=== PATIENT | male | born 1945 | race Caucasian/White ===

== ENCOUNTER 2018-09-29 12:46 | Observation (INO) ==
[2018-09-29] MEDS ORDERED: ASPIRIN CHEW 324 MG PO STA (14:00)
--- NOTE | 2018-09-29 14:08 | XRay Report ---
XR chest 2V routine CLINICAL HISTORY: cp dyspnea COMPARISON STUDY: No previous studies for comparison. FINDINGS: The bones soft tissues and hemidiaphragms are normal. The cardiomediastinal silhouette is n ormal. The lungs are clear. The pulmonary vasculature is normal. IMPRESSION: Negative chest. The above report was generated using voice recognition software. It may contain grammatical, syntax or spelling errors. Electronically signed by: Karel Atkins M.D. 09/29/2018 2:07 PM
[2018-09-29 14:21] LABS: Basophils # (auto) 0.01 K/uL (0-0.2); Basophils % (auto) 0.1 %; Eosinophils # (auto) 0.15 K/uL (0-0.5); Eosinophils % (auto) 2.1 %; Hematocrit (blood only) 42.5 % (42-52); Hemoglobin 15.1 g/dL (14.0-18.0); Immature Granulocytes # (auto) 0.03 K/uL (0.00-0.02); Immature Granulocytes % (auto) 0.4 %; Lymphocytes # (auto) 2.17 K/uL (1.2-3.4); Mean Corpuscular Hgb Conc 35.5 g/dL (32-36); Mean Corpuscular Volume 88.5 fL (80-100); Mean Platelet Volume 10.1 fL (7.4-10.4); Monocytes # (auto) 0.54 K/uL (0.11-0.59); Monocytes % (auto) 7.7 %; Neutrophils % (auto) 58.7 %; Platelet Count 163 K/uL (130-400); RDW Coefficient of Variation 12.5 % (11.5-14.5); RDW Standard Deviation 39.9 fL (36.4-46.3)
[2018-09-29 14:35] LABS: Partial Thromboplastin Ratio 0.9; Partial Thromboplastin Time 24.4 Seconds (21.0-31.0); Prothrombin Time 10.3 Seconds (9.0-12.0)
[2018-09-29 14:37] LABS: Alanine Aminotransferase 39 U/L (12-78); Albumin Level 4.2 gm/dl (3.4-5.0); Aspartate Aminotransferase 20 U/L (15-37); BUN Creatinine Ratio 16.1 (10-20); Blood Urea Nitrogen 14 mg/dl (7-18); Carbon Dioxide 26 mmol/L (21-32); Chloride 106 mmol/L (98-107); Creatinine Clr Calc Pharmacy 84.9 ml/min; Est GFR (African American) 99.7; Glucose 129 mg/dl (70-99); Potassium 3.8 mmol/L (3.5-5.1); Sodium 140 mmol/L (136-145)
[2018-09-29 14:42] LABS: Albumin Globulin Ratio 1.4 (0.9-2); Alkaline Phosphatase 66 U/L (45-117); Bilirubin,Total 1.4 mg/dl (0.2-1); Globulin 2.9 gm/dl (2.5-4.0); Total Protein 7.1 gm/dl (6.4-8.2); Troponin I < 0.015 ng/ml (0-0.045)
--- NOTE | 2018-09-29 16:05 | History & Physical Report ---
Date of Service September 29, 2018 Assessment & Plan (1) Chest pain: Observation with telemetry. Serial EKGs and troponins. Obtain cardiac echo. Cardiology consultation. Continue aspirin therapy Present on Admission?: Yes (2) Hypertension: Treated with losartan Present on Admission?: Yes (3) Type 2 diabetes mellitus: ADA diet. Metformin is on hold. Sliding scale insulin coverage Present on Admission?: Yes (4) DVT prophylaxis: Lovenox subcu History of Present Illness Chief Complaint: Chest discomfort while cleaning a trailer Primary Care Provider: Beatriz Gonzalez 73-year-old male with a history of hypertension and type 2 diabetes. No previous cardiac history. 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 No associated shortness of breath, radiation, diaphoresis, palpitations. Initial troponin is normal. EKG reveals no acute changes. Chest x-ray negative. He is placed on observation status for further evaluation. He has an elevated heart score as expected. Metformin will be placed on hold in the event that cardiac catheterization becomes necessary. Continue aspirin therapy. Allergies Allergy/AdvReac Type Severity Reaction Status Date / Time oxytetracycline AdvReac Rash Unverified 09/29/18 14:53 [From Terramycin] Tetracyclines AdvReac Rash Unverified 09/29/18 14:53 Home Medications Home Medications Medication Instructions Recorded Confirmed Type atorvastatin 20 mg PO DAILY 09/29/18 09/29/18 History gabapentin 100 mg PO TID 09/29/18 09/29/18 History losartan 25 mg PO DAILY 09/29/18 09/29/18 History metformin 750 mg PO DAILY 09/29/18 09/29/18 History Past Med/Surg History Medical History Diabetes mellitus Hyperlipidemia Hypertension Family History Other Family history non-contributory Social History Preferred Language: [place] Feels Safe at Home: Yes Smoking Status: Never smoker Review of Systems Review of Systems: Constitutional-no fever or chills ENT-no blurred vision, no double vision, no epistaxis, no sore throat Respiratory-no cough, no wheezing, no shortness of breath Cardiac-no palpitations, no syncope. Chest discomfort as described above GI-no nausea, vomiting, diarrhea, melena, hematochezia -no urinary retention, no urinary incontinence, no dysuria, no hematuria Musculoskeletal-no joint pain, no muscle tenderness Skin-no bruising, no rashes, no pruritus Neuro-no isolated weakness, no paresthesia, no weakness Psych-no depression, no anxiety Physical Exam Physical Exam: General-alert and oriented x3, no fevers, no chills HEENT-head atraumatic and normocephalic, TMs intact bilaterally, pupils equal and reactive to light, extraocular muscles intact Neck-no lymphadenopathy or thyromegaly, trachea midline Chest-clear to auscultation percussion. No rales wheezing or rhonchi Cardiac-regular rate and rhythm, normal S1 and S2, no murmurs Abdomen-normal bowel sounds, nontender, no hepatosplenomegaly Extremities-no cyanosis, clubbing, or edema Neuro-cranial nerves II through XII intact, motor and sensory function within normal limits, strength symmetrical 5/5, no focal deficits Psych-normal affect, normal mood Results & Data Vital Signs (Past 12 Hours) Vital Signs Temp Pulse Resp BP Pulse Ox 09/29/18 15:30 63 18 115/75 95 09/29/18 15:11 64 15 145/74 H 97 09/29/18 15:00 97 09/29/18 14:30 65 15 97 09/29/18 14:27 70 18 144/85 H 98 09/29/18 14:00 62 09/29/18 13:42 62 20 98 09/29/18 13:30 61 15 131/76 98 09/29/18 13:10 96 09/29/18 13:02 62 20 96 09/29/18 13:00 72 17 146/85 H 97 09/29/18 12:48 36.7 C 80 16 141/86 H 99 Laboratory Results 09/29/18 13:06 09/29/18 13:06 PG Care Time/CCT Total # of Minutes Spent Total Time Spent with Patient: Total time spent is greater than 50% in coordination of care (as documented) at patient's floor/unit and/or counseling patient: (1) Chest pain Chest pain type: unspecified Qualified Code(s): R07.9 - Chest pain, unspecified
--- NOTE | 2018-09-29 17:50 | Emergency Department Note ---
Entered by Juan C Gunn acting as a scribe for History of Present Illness General Chief complaint: Cardiac Assessment Stated complaint: UPPER LEFT CHEST PAIN Time Seen by Provider: 09/29/18 13:52 Source: patient History of Present Illness Provider complaint: Chest pain Onset (ago): hour(s) (This morning) Location: chest Radiation: non-radiation Pain Consistency: + intermittent Current Pain Intensity: 3 Quality: + other (Pressure) Relieved By: + none Exacerbated By: + none Associated symptoms: no nausea/vomiting and no shortness of breath The patient is a 73 year old male who presents to the Emergency Room with complaints of intermittent left sided chest pain 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 The patient describes the pain as a pressure and notes it is a 3/10. The patient reports that the pain continued after he stopped cleaning, however en route the pain subsided. The patient denies any shortness of breath, nausea, vomiting, diarrhea, urinary symptoms, or cough. The patient also denies any long distance travel or smoking. The patient has a history of DM, HTN and HLD as well as a family history of CAD. Home Medications Home Medications Medication Instructions Recorded Confirmed Type atorvastatin 20 mg PO DAILY 09/29/18 09/29/18 History gabapentin 100 mg PO TID 09/29/18 09/29/18 History losartan 25 mg PO DAILY 09/29/18 09/29/18 History metformin 750 mg PO DAILY 09/29/18 09/29/18 History Allergies Allergy/AdvReac Type Severity Reaction Status Date / Time oxytetracycline AdvReac Rash Unverified 09/29/18 14:53 [From Terramycin] Tetracyclines AdvReac Rash Unverified 09/29/18 14:53 Past Med/Surg History Medical History Type 2 diabetes mellitus (Chronic) Hypertension (Chronic) Chest pain (Acute) Diabetes mellitus Hyperlipidemia Hypertension Family History Other Family history non-contributory Social History Preferred Language: Swiss Feels Safe at Home: Yes Smoking Status: Never smoker Review of Systems See HPI for pertinent positives & negatives. and A total of 10 systems reviewed and were otherwise negative Physical Exam Vital Signs Vital Signs - 24 hr 09/29/18 12:48 09/29/18 13:00 09/29/18 13:02 Temperature 36.7 C Temperature Source Oral Sepsis Recent Fever Within 48 Hours No Sepsis New/Unexplained Change in Mental Status No Sepsis Action Taken by Nursing No Action Required Pulse Rate 80 72 62 Pulse Rate from SpO2 Sensor 72 62 Pulse Rhythm Respiratory Rate 16 17 20 Respiratory Effort / Characteristics Non-Labored Spontaneous Blood Pressure 141/86 H 146/85 H Blood Pressure Mean 104 105 Blood Pressure Position Sitting Pulse Oximetry 99 97 96 Oxygen Delivery Method Room Air 09/29/18 13:10 09/29/18 13:30 09/29/18 13:42 Temperature Temperature Source Sepsis Recent Fever Within 48 Hours Sepsis New/Unexplained Change in Mental Status Sepsis Action Taken by Nursing Pulse Rate 61 62 Pulse Rate from SpO2 Sensor 60 Pulse Rhythm Regular Respiratory Rate 15 20 Respiratory Effort / Characteristics Blood Pressure 131/76 Blood Pressure Mean 94 Blood Pressure Position Pulse Oximetry 96 98 98 Oxygen Delivery Method Room Air Room Air 09/29/18 14:00 09/29/18 14:27 09/29/18 14:30 Temperature Temperature Source Sepsis Recent Fever Within 48 Hours Sepsis New/Unexplained Change in Mental Status Sepsis Action Taken by Nursing Pulse Rate 62 70 65 Pulse Rate from SpO2 Sensor 69 64 Pulse Rhythm Respiratory Rate 18 15 Respiratory Effort / Characteristics Blood Pressure 144/85 H Blood Pressure Mean 104 Blood Pressure Position Pulse Oximetry 98 97 Oxygen Delivery Method 09/29/18 15:00 09/29/18 15:11 09/29/18 15:30 Temperature Temperature Source Sepsis Recent Fever Within 48 Hours Sepsis New/Unexplained Change in Mental Status Sepsis Action Taken by Nursing Pulse Rate 64 63 Pulse Rate from SpO2 Sensor 64 65 62 Pulse Rhythm Respiratory Rate 15 18 Respiratory Effort / Characteristics Blood Pressure 145/74 H 115/75 Blood Pressure Mean 97 88 Blood Pressure Position Pulse Oximetry 97 97 95 Oxygen Delivery Method 09/29/18 16:00 Temperature Temperature Source Sepsis Recent Fever Within 48 Hours Sepsis New/Unexplained Change in Mental Status Sepsis Action Taken by Nursing Pulse Rate 65 Pulse Rate from SpO2 Sensor 64 Pulse Rhythm Respiratory Rate 25 H Respiratory Effort / Characteristics Blood Pressure 121/73 Blood Pressure Mean 89 Blood Pressure Position Pulse Oximetry 97 Oxygen Delivery Method GENERAL: He is oriented to person, place, and time. He appears well-developed and well-nourished. He does not appear distressed. HENT: Exam performed. - Head: Normocephalic and atraumatic. - Right Ear: External ear normal. No mastoid tenderness. - Left Ear: External ear normal. No mastoid tenderness. - Mouth/Throat: The oropharynx is clear and moist. No trismus in the jaw. No dental abscesses or uvula swelling. No oropharyngeal exudate or tonsillar abscesses. EYES: Conjunctivae and EOM are normal. Pupils are equal, round, and reactive to light. Right eye exhibits no discharge. Left eye exhibits no discharge. No scleral icterus. NECK: Normal range of motion. Neck supple. No JVD present. No spinous process tenderness present. No carotid bruit present. No rigidity. No tracheal deviation and normal range of motion present. No Brudzinski's sign and no Kernig's sign noted. CV: Normal rate, regular rhythm, normal heart sounds and intact distal pulses. There is no peripheral edema. Palpable radial pulses bue. PULM/CHEST: Effort normal and breath sounds normal. No respiratory distress. No stridor. He has no wheezes. He has no rales. - Chest Wall: He exhibits no tenderness. ABD: The abdomen is soft. Bowel sounds are normal. He has no distension. No mass is present. There is no tenderness. There is no rebound, no guarding, no Hardy's sign and no tenderness at McBurney's point. Rovsig negative. MUSC/SKEL: Normal range of motion. There is no peripheral edema, tenderness or deformity. LYMPH: No cervical adenopathy. NEURO: He is alert and oriented to person, place, and time. He has normal strength. No cranial nerve deficit or sensory deficit. Coordination and gait normal. GCS eye subscore is 4. GCS verbal subscore is 5. GCS motor subscore is 6. Cerebellar tests wnl. SKIN: Skin is warm and dry. He is not diaphoretic. PSYCH: He has a normal mood and affect. Behavior is normal. Judgment and thought content normal. Course 1356: Past medical records reviewed. The patient was evaluated in room A09B, and a complete history and physical examination were performed. 1450: Vital signs are stable, labs and imaging are WNL. The patient has a moderate heart score. I spoke to Dr. John Munguia [facility] about the patient's case and he will be accepting the patient to rule out ACS. Consultations Consultation #1: I spoke to Dr. John Munguia [facility] about the patient's case and he will be accepting the patient to rule out ACS. Time: 14:50 Administered Medications Discontinued Medications Aspirin (Aspirin) 324 mg PO NOW STA Stop: 09/29/18 14:01 Last Admin: 09/29/18 14:25 Dose: 324 mg Documented by: [id number] Medical Decision Making Medical Records Attestation: I reviewed the patient's medical records. Home Medications Current Medication List: was personally reviewed by me Laboratory Data Attestation: I reviewed the patient's lab results. Result diagrams: 09/29/18 13:06 09/29/18 13:06 Lab Results 09/29/18 09/29/18 09/29/18 Range/Units 13:06 13:06 13:06 WBC 7.00 (4.8-10.8) K/uL RBC 4.80 (4.7-6.1) M/uL Hgb 15.1 (14.0-18.0) g/dL Hct 42.5 (42-52) % MCV 88.5 (80-100) fL MCH 31.5 (25-34) pg MCHC 35.5 (32-36) g/dL RDW Std Deviation 39.9 (36.4-46.3) fL RDW Coeff of Jean Pierre 12.5 (11.5-14.5) % Plt Count 163 (130-400) K/uL MPV 10.1 (7.4-10.4) fL Immature Gran % (Auto) 0.4 % Neut % (Auto) 58.7 % Lymph % (Auto) 31.0 % Josephine % (Auto) 7.7 % Eos % (Auto) 2.1 % Baso % (Auto) 0.1 % Immature Gran # (Auto) 0.03 H (0.00-0.02) K/uL Neut # (Auto) 4.10 (1.4-6.5) K/uL Lymph # (Auto) 2.17 (1.2-3.4) K/uL Josephine # (Auto) 0.54 (0.11-0.59) K/uL Eos # (Auto) 0.15 (0-0.5) K/uL Baso # (Auto) 0.01 (0-0.2) K/uL PT 10.3 (9.0-12.0) Seconds INR 1.0 (0.9-1.1) APTT 24.4 (21.0-31.0) Seconds PTT Ratio 0.9 Sodium 140 (136-145) mmol/L Potassium 3.8 (3.5-5.1) mmol/L Chloride 106 (98-107) mmol/L Carbon Dioxide 26 (21-32) mmol/L Anion Gap 8.0 (3-11) BUN 14 (7-18) mg/dl Creatinine 0.86 (0.6-1.4) mg/dl Est Cr Clr Drug Dosing 84.9 ml/min Est GFR ( Amer) 99.7 Est GFR (Non-Af Amer) 86.0 BUN/Creatinine Ratio 16.1 (10-20) Glucose 129 H (70-99) mg/dl Calcium 9.0 (8.5-10.1) mg/dl Total Bilirubin 1.4 H (0.2-1) mg/dl AST 20 (15-37) U/L ALT 39 (12-78) U/L Alkaline Phosphatase 66 (45-117) U/L Troponin I < 0.015 (0-0.045) ng/ml Total Protein 7.1 (6.4-8.2) gm/dl Albumin 4.2 (3.4-5.0) gm/dl Globulin 2.9 (2.5-4.0) gm/dl Albumin/Globulin Ratio 1.4 (0.9-2) Imaging Data Radiologist's Impression: Radiology results as stated below per my review and the radiologist's interpretation: XR chest 2V routine CLINICAL HISTORY: cp dyspnea COMPARISON STUDY: No previous studies for comparison. FINDINGS: The bones soft tissues and hemidiaphragms are normal. The cardiomediastinal silhouette is normal. The lungs are clear. The pulmonary vasculature is normal. IMPRESSION: Negative chest. The above report was generated using voice recognition software. It may contain grammatical, syntax or spelling errors. Electronically signed by: Karel Atkins M.D. 09/29/2018 2:07 PM ECG Data Attestation: I personally reviewed and interpreted this ECG as follows: Indication: chest pain Rate (beats per minute): 69 Rhythm: normal sinus Findings: + other (IL, QRS, QTC intervals are WNL); no ST depression and no ST elevation Blood Pressure Blood Pressure Findings: Elevated blood pressure Blood Pressure Disposition: further management by hospitalist MDM Narrative Vital signs are stable, labs and imaging are WNL. The patient has a moderate h eart score. I spoke to Dr. Lopez - [facility] about the patient's case and he will be accepting the patient to rule out ACS. Impression & Plan Chest pain Discharge Plan Visit Data Chief Complaint: Cardiac Assessment Stated Complaint: UPPER LEFT CHEST PAIN ED Provider: Mitul Alexis Discharge Problem: Chest pain Patient Disposition: Being Evaluated by Hospitalist Discharge Instructions Interventions: ED Discharge Assessment Last Done: 09/29/18 17:15 Discharge Problem: Chest pain Qualifiers: Chest pain type: unspecified Qualified Code(s): R07.9 - Chest pain, unspecified The scribe's documentation has been prepared under my direction and personally reviewed by me in its entirety. I confirm that the note above accurately reflects all work, treatment, procedures, and medical decision making performed by me.
[2018-09-29] MEDS ORDERED: ACETAMINOPHEN 325 MG TAB PO PRN (17:56)
[2018-09-29] MEDS ORDERED: ZOLPIDEM TARTRATE 5 MG TAB PO PRN (17:56)
[2018-09-29] MEDS ORDERED: ONDANSETRON INJ 2 MG/ML 2 ML VIAL IV PRN (17:56)
[2018-09-29] MEDS ORDERED: ALUMINUM/MAGNESIUM SUSP 30 ML UDC PO PRN (17:56)
[2018-09-29] MEDS ORDERED: CARBOHYDRATES FOR HYPOGLYCEMIA PO PRN (18:30)
[2018-09-29] MEDS ORDERED: DEXTROSE 50% 50 ML SYRINGE IV PRN (18:30)
[2018-09-29] MEDS ORDERED: GLUCAGON FOR INJ 1 MG VIAL IM PRN (18:30)
[2018-09-29] MEDS ORDERED: GLUCOSE 40% GEL 15 GM TUBE PO PRN (18:30)
[2018-09-29] MEDS ORDERED: GLUCOSE 10 TABS/TUBE PO PRN (18:30)
[2018-09-29] MEDS: INSULIN ASPART 100 UNITS/ML 3 ML PEN SC SCH ×2 (18:47→20:34)
[2018-09-29] MEDS ORDERED: ENOXAPARIN INJ 40 MG/0.4 ML SYR SQ SCH (20:00)
[2018-09-29] MEDS: GABAPENTIN 100 MG CAP PO SCH (20:32)
[2018-09-30] MEDS: GABAPENTIN 100 MG CAP PO SCH ×2 (07:55→13:29)
[2018-09-30] MEDS: INSULIN ASPART 100 UNITS/ML 3 ML PEN SC SCH ×2 (07:57→12:01)
--- NOTE | 2018-09-30 08:52 | Cardiology Consultation ---
Date of Consultation September 30, 2018 Assessment & Plan (1) Chest pain: 2. Hypertension 3. Vpr-wxstlfc-qxosqehul diabetes Patient has remained chest pain-free and no evidence of cardiac ischemia by EKG, enzymes, echo. With patient's risk factors feel risk for ACS is mildly elevated and recommend additional risk stratification with stress test. We will plan to perform exercise stress echo later today. On echocardiogram does have a trace to small pericardial effusion. Symptoms atypical for pericarditis and no findings to suggest on EKG. Would recommend repeat surveillance echo as an outpatient. Assuming stress test unremarkable okay from a cardiac standpoint for discharge later today. History of Present Illness Attending Physician: Juan C Lopez MD History of Present Illness Mr. Arndt is a very pleasant 73-year-old man with a history of hypertension, aos-pcecfak-qnybyhxcl diabetes who was admitted with new onset chest pain. Patient active at baseline is been in his usual state of health. Yesterday morning had intermittent left-sided chest pain for approximately 5 hours. Pain eventually resolved while driving to hospital. No associated symptoms with chest pain. No recurrence since admission. Since admission has been hemodynamically stable. Initial EKG with no dynamic ST changes. Troponin negative x3. Telemetry unremarkable. Echo from this a.m. reviewed. Normal LV function with no regional wall motion normalities. Trace pericardial effusion. Allergies Allergy/AdvReac Type Severity Reaction Status Date / Time oxytetracycline AdvReac Rash Unverified 09/29/18 14:53 [From Terramycin] Tetracyclines AdvReac Rash Unverified 09/29/18 14:53 Home Medications Home Medications Medication Instructions Recorded Confirmed Type atorvastatin 20 mg PO DAILY 09/29/18 09/29/18 History gabapentin 100 mg PO TID 09/29/18 09/29/18 History losartan 25 mg PO DAILY 09/29/18 09/29/18 History metformin 750 mg PO DAILY 09/29/18 09/29/18 History Patient History Medical History Type 2 diabetes mellitus (Chronic) Hypertension (Chronic) Chest pain (Acute) Diabetes mellitus Hyperlipidemia Hypertension Family History Other Family history non-contributory Social History Preferred Language: Hungarian Communication Ability: Effective 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 Beliefs That Will Affect Care: None Current Living Situation: Spouse Other Information That Helps Us Care for You: No Feels Safe at Home: Yes Safety Concerns: Feels Safe At This Time Smoking Status: Never smoker Do You Dip or Chew Tobacco: No Second Hand Exposure: No Tobacco Cessation Education Requested by Patient: No Hx Alcohol Use: No Hx Substance Use: No Review of Systems Review of Systems: All systems reviewed & are unremarkable except as noted in HPI & below Physical Exam Physical Exam: General: Comfortable, no acute distress Eyes: Sclerae anicteric, extraocular movements intact HENT: Oropharynx clear mucous membranes moist Neck: Normal carotid upstrokes, no bruits. No JVD. Lungs: Clear to auscultation bilaterally, no rhonchi or wheezes Cardiac: Regular rate and rhythm, no murmurs, rubs or gallops. Vascular: 2+ radial, DP and PT pulses. No varicosities. Abdomen: Soft, nontender, nondistended, positive bowel sounds. Extremities: Well perfused, no peripheral edema Skin: No rashes or lesions. Neuro: Nonfocal Psych: Alert orient x3, normal affect and mood Results & Data Vital Signs (Past 12 Hours) Vital Signs Temp Pulse Resp BP Pulse Ox 09/30/18 07:10 36.6 C 67 17 135/79 97 09/30/18 03:25 36.4 C L 65 17 112/70 95 09/29/18 23:54 36.6 C 67 17 127/76 95 PG Care Time/CCT Total # of Minutes Spent Total Time Spent with Patient: Total time spent is greater than 50% in coordination of care (as documented) at patient's floor/unit and/or counseling patient: (1) Chest pain Chest pain type: unspecified Qualified Code(s): R07.9 - Chest pain, unspecified
[2018-09-30] MEDS ORDERED: ASPIRIN 81 MG ECTAB PO SCH (09:00)
[2018-09-30] MEDS ORDERED: ATORVASTATIN 20 MG TAB PO SCH (09:00)
[2018-09-30] MEDS ORDERED: LOSARTAN POTASSIUM 25 MG TAB PO SCH (09:00)
[2018-09-30 12:52] LABS: Estimated Average Glucose 186 mg/dl; Hemoglobin A1C 8.1 % (4.5-5.6)
--- NOTE | 2018-10-10 22:11 | Discharge Summary ---
Date of Service September 30, 2018 Admission HPI Per Admitting Provider 73-year-old male with a history of hypertension and type 2 diabetes. No previous cardiac history. 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 No associated shortness of breath, radiation, diaphoresis, palpitations. Initial troponin is normal. EKG reveals no acute changes. Chest x-ray negative. He is placed on observation status for further evaluation. He has an elevated heart score as expected. Metformin will be placed on hold in the event that cardiac catheterization becomes necessary. Continue aspirin therapy. Principal Diagnosis Atypical chest pain Discharge Exam General-alert and oriented x3, no fevers, no chills HEENT-head atraumatic and normocephalic, TMs intact bilaterally, pupils equal and reactive to light, extraocular muscles intact Neck-no lymphadenopathy or thyromegaly, trachea midline Chest-clear to auscultation percussion. No rales wheezing or rhonchi Cardiac-regular rate and rhythm, normal S1 and S2, no murmurs Abdomen-normal bowel sounds, nontender, no hepatosplenomegaly Extremities-no cyanosis, clubbing, or edema Neuro-cranial nerves II through XII intact, motor and sensory function within normal limits, strength symmetrical 5/5, no focal deficits Psych-normal affect, normal mood Discharge Data Allergies Allergy/AdvReac Type Severity Reaction Status Date / Time oxytetracycline AdvReac Rash Unverified 09/29/18 14:53 [From Terramycin] Tetracyclines AdvReac Rash Unverified 09/29/18 14:53 Consultations 09/29/18 14:48 ED Decision to Admit Stat 09/29/18 17:56 Consult Cardiology Routine Hospital Course (1) Chest pain: Observation with telemetry. Serial EKGs and troponins. Obtain cardiac echo. Cardiology consultation. Continue aspirin therapy On day of discharge, trop was negative. Stress test was also negative. will have patient followup with PCP. Explained to patient that this will place him in ow risk of having an WI. (2) Hypertension: Treated with losartan (3) Type 2 diabetes mellitus: ADA diet. Metformin is on hold. Sliding scale insulin coverage (4) DVT prophylaxis: Lovenox subcu Total Time Total Time Spent Total Time Spent (In Minutes): 32 Total Time Includes: Examination of the Patient, Discharge Planning and Medication Reconciliation Discharge Plan Discharge Items Patient Disposition: Home - Self-Care Reason For Visit: CHEST PAIN Discharge Diagnosis: chest pain Discharge Goals: Decrease discomfort Activity: Resume your previous activity Non-emergency contact: Primary Care Provider Call non-emergency contact if: you have any medication questions Follow-up/Referrals: Beatriz Gonzalez [Primary Care Provider] - 10/05/18 12:50 pm (Please, follow up at Dr. Gonzalez's office with Dr. Miriam Tee on ThursdayOctober 05 at 12:50 pm. *If you need to change this appointment, call their office at [phone].) Diet: Regular Addtl Provider Instructions: You were seen for chest pain. It was determined that we needed a stress test to assess risk for aheart at [facility]. Your stress test was negative which puts you at a low risk of a heart attack at this moment. Prescriptions: Continued atorvastatin 20 mg tablet 20 mg PO DAILY RF: 0 losartan 25 mg tablet 25 mg PO DAILY RF: 0 gabapentin 100 mg capsule 100 mg PO TID RF: 0 metformin 750 mg tablet extended release 24 hr 750 mg PO DAILY RF: 0 Stand-Alone Forms: [facility] Discharge Orders: Discharge Order (Routine); Ordered 09/30/18 Ordered By: Dave Wood Admission Data Admit Date/Time: 09/29/18 16:04 Attending Provider: Dave Wood Admit Provider: Juan C Lopez Primary Care Provider: Beatriz Gonzalez Other Providers: hSayne Roche Service: Telemetry Other Interventions: Discharge Summary Assessment (RN) Last Done: 09/30/18 16:17 DC Date/Time DO NOT enter until pt leaves facility: 09/30/18 18:05
== END 2018-09-30 18:05 | disposition home or self-care (01) ==
LOC: 2E 12:46 → ED 12:46 → SUATTDRO 16:04 → 2E 17:15
DX: I10 Essential (primary) hypertension; Z79.899 Other long term (current) drug therapy; E11.9 Type 2 diabetes mellitus without complications; R07.9 Chest pain, unspecified; Z88.1 Allergy status to other antibiotic agents; Z79.84 Long term (current) use of oral hypoglycemic drugs; E78.5 Hyperlipidemia, unspecified